=== PATIENT | female | born 1945 | race Caucasian/White ===

== ENCOUNTER 2021-03-31 13:09 | Outpatient (CLI) | payer MEDICARE | END 2021-03-31 13:10 | disposition home or self-care (01) | LOC: CSHULT 13:09 | PROVIDERS: ATTEND Family Medicine | DX: R06.09 Other forms of dyspnea (principal); I34.0 Nonrheumatic mitral (valve) insufficiency; I07.1 Rheumatic tricuspid insufficiency | CPT/HCPCS: 93306 ==

== ENCOUNTER 2022-02-28 12:15 | Outpatient (CLI) | payer OTHER ==
[~2022-02-28 12:15] MED LIST: Iopamidol 300 61% 100 ML VIAL FS ONE
== END 2022-02-28 12:16 | disposition home or self-care (01) ==
LOC: CSHCT 12:15
PROVIDERS: ATTEND Otolaryngology Plastic Surgery within the Head & Neck
DX: C06.9 Malignant neoplasm of mouth, unspecified (principal); I65.23 Occlusion and stenosis of bilateral carotid arteries
CPT/HCPCS: 70492; 82565

== ENCOUNTER 2022-04-12 12:58 | Inpatient (IN) | payer MEDICARE ==
[2022-04-12] MEDS ORDERED: Ondansetron PF 4 MG/2 ML Vial ONE (13:31)
[2022-04-12 13:39] LABS: Bilirubin Neg (Negative); Blood, Urine 50 (Negative); Clarity Cloudy (Clear); Glucose, Urine (Dipstick) Normal (Negative); Ketone, Urine Negative (Negative); Leukocyte 500 (Negative); Nitrite Positive (Negative); Protein, Urine (Dipstick) 30 mg/dl (Neg-Trace); Urobilinogen Normal mg/dL (Less than 2)
[2022-04-12 13:48] LABS: Bacteria/HPF 2+ HPF (None Seen); WBC/HPF Greater than 50 HPF (0-3)
[2022-04-12 14:11] LABS: #Eosinphils 0.2 10x3/uL (0.0-0.5); #Neutrophils 11.3 10x3/uL (1.5-8.4); %Basophils 0.2 % (0.0-2.0); %Eosinophils 1.4 % (0.0-6.0); %Lymphocytes 9.8 % (18.0-47.0); %Monocytes 7.4 % (0.0-10.0); %Neutrophils 80.8 % (40.0-75.0); Hemoglobin 11.7 g/dL (12.0-15.5); Mean Corpuscular HGB CONC 36.2 g/dL (32.0-36.0); Mean Platelet Volume 10.6 fl (7.4-10.4); Platelet Count 354 10x3/uL (150-450); RBC Distribution Width 11.9 % (11.5-14.5); Red Blood Cell (RBC) Count 3.55 10x6/uL (3.90-5.03)
[2022-04-12 14:25] LABS: ALT (SGPT) 21 U/L (8-55); AST (SGOT) 25 U/L (5-34); Albumin 3.6 g/dL (3.4-4.8); Alkaline Phosphatase 122 U/L (40-110); Anion Gap 12 mmol/L (10-20); BUN (Urea Nitrogen) 17 mg/dL (9.8-20.1); Bilirubin, Total 0.6 mg/dL (0.2-1.2); Calc. Creatinine Clearance 0 mL/min (70-130); Carbon Dioxide 21 mmol/L (23-31); Chloride 89 mmol/L (98-107); Estimated GFR 64; Globulin 2.9 g/dL (2.4-3.5); Glucose 72 mg/dL (83-110); Magnesium 1.5 mg/dL (1.6-2.6); Potassium 4.5 mmol/L (3.5-5.1); Protein, Total 6.5 g/dL (5.8-8.1)
[2022-04-12 14:31] LABS: Sodium 117 mmol/L (136-145)
[2022-04-12] MEDS ORDERED: cefTRIAXone (ROCEPHIN) 1 GM VIAL ONE (14:32)
[2022-04-12] MEDS ORDERED: Dextrose 50% Abboject 50 ML SYRINGE SLOW IVP PRN (16:48)
[2022-04-12] MEDS ORDERED: Dextrose 5% in Water 1,000 ML IV PRN (16:48)
[2022-04-12] MEDS ORDERED: HumaLOG 300 UNITS/3 ML VIAL SC PRN (16:48)
[2022-04-12] MEDS ORDERED: Ondansetron PF 4 MG/2 ML Vial IVP PRN (16:51)
[2022-04-12] MEDS ORDERED: Senokot S 8.6-50 MG TAB PO PRN (16:51)
[2022-04-12] MEDS ORDERED: Ondansetron ODT 4 MG TAB PO PRN (16:51)
[2022-04-12] MEDS ORDERED: Magnesium 2 GM/50 ML(in water) 2 GM in Premix Bag 1 BAG IVPB SCH (17:15)
[2022-04-12] MEDS ORDERED: Ipratropium/Albuterol 3 ML NEB NEB PRN (17:23)
[2022-04-12] MEDS: Sodium Chloride 0.9% 1,000 ML IV SCH ×2 (18:15→18:31)
[2022-04-12] MEDS: HumaLOG 300 UNITS/3 ML VIAL SC PRN (18:16)
[2022-04-12 18:41] LABS: Troponin I Less than 0.010 ng/mL (< 0.028)
[2022-04-12 20:25] LABS: SARS-CoV-2 NAA Rapid Test Not Detected (NotDetected)
[2022-04-12 20:50] LABS: Anion Gap 12 mmol/L (10-20); BUN (Urea Nitrogen) 14 mg/dL (9.8-20.1); Calc. Creatinine Clearance 70 mL/min (70-130); Calcium 8.9 mg/dL (7.8-10.44); Carbon Dioxide 19 mmol/L (23-31); Chloride 89 mmol/L (98-107); Estimated GFR 65; Glucose 187 mg/dL (83-110); Potassium 4.3 mmol/L (3.5-5.1)
[2022-04-12 20:53] LABS: Sodium 116 mmol/L (136-145)
[2022-04-12] MEDS: Famotidine 20 MG TAB PO SCH (21:01)
[2022-04-12] MEDS: Atorvastatin Calcium 10 MG TAB PO SCH (21:01)
[2022-04-12] MEDS: Metoprolol Tartrate 50 MG TAB PO SCH (21:05)
[2022-04-12] MEDS ORDERED: TOLVAPTAN 15 MG PO SCH (21:15)
[2022-04-12] MEDS ORDERED: TOLVAPTAN PO SCH (21:15)
[2022-04-12] MEDS: Acetaminophen 325 MG TAB PO PRN (22:43)
[2022-04-13 05:05] LABS: #Basophils 0.1 10x3/uL (0.0-0.2); #Eosinphils 0.3 10x3/uL (0.0-0.5); #Monocytes 1.1 10x3/uL (0.0-1.1); #Neutrophils 10.9 10x3/uL (1.5-8.4); %Basophils 0.5 % (0.0-2.0); %Eosinophils 2.3 % (0.0-6.0); %Lymphocytes 9.2 % (18.0-47.0); %Monocytes 8.2 % (0.0-10.0); %Neutrophils 79.4 % (40.0-75.0); Hemoglobin 12.1 g/dL (12.0-15.5); Mean Corpuscular HGB CONC 34.6 g/dL (32.0-36.0); Mean Corpuscular Hemoglobin 31.8 pg (27.0-33.0); Mean Corpuscular Volume 91.9 fl (81.6-98.3); Mean Platelet Volume 10.6 fl (7.4-10.4); Platelet Count 350 10x3/uL (150-450); RBC Distribution Width 11.9 % (11.5-14.5); Red Blood Cell (RBC) Count 3.81 10x6/uL (3.90-5.03); White Blood Cell (WBC) Count 13.7 10x3/uL (3.5-10.5)
[2022-04-13 05:32] LABS: Anion Gap 17 mmol/L (10-20); BUN (Urea Nitrogen) 15 mg/dL (9.8-20.1); Calc. Creatinine Clearance 70 mL/min (70-130); Calcium 9.3 mg/dL (7.8-10.44); Carbon Dioxide 16 mmol/L (23-31); Chloride 94 mmol/L (98-107); Estimated GFR 65; Glucose 115 mg/dL (83-110); Magnesium 1.9 mg/dL (1.6-2.6); Sodium 122 mmol/L (136-145)
[2022-04-13] MEDS ORDERED: Levothyroxine Sodium 88 MCG TAB PO SCH (06:00)
[2022-04-13] MEDS: Metoprolol Tartrate 50 MG TAB PO SCH ×2 (10:35→20:17)
[2022-04-13] MEDS: Fluticasone Propionate Nasal Spray 16 gm Bottle NASAL SCH (10:35)
[2022-04-13] MEDS: Famotidine 20 MG TAB PO SCH ×2 (10:35→20:17)
[2022-04-13] MEDS: HumaLOG 300 UNITS/3 ML VIAL SC PRN ×2 (13:00→15:46)
[2022-04-13] MEDS: cefTRIAXone\\ROCEPHIN 1 GM in Sodium Chloride 0.9% 100 ML IVPB SCH (15:34)
[2022-04-13] MEDS: HumaLOG 300 UNITS/3 ML VIAL SC SCH (17:00)
[2022-04-13] MEDS: Acetaminophen 325 MG TAB PO PRN (19:57)
[2022-04-13] MEDS: Atorvastatin Calcium 10 MG TAB PO SCH (20:17)
[2022-04-13] MEDS: Lantus 1000 UNITS/10 ML VIAL SC SCH (20:17)
[2022-04-13] MEDS ORDERED: Lantus 1000 UNITS/10 ML VIAL SC SCH (23:59)
[2022-04-13] MEDS ORDERED: HumaLOG 300 UNITS/3 ML VIAL SC SCH (23:59)
[2022-04-14 05:31] LABS: Anion Gap 16 mmol/L (10-20); BUN (Urea Nitrogen) 19 mg/dL (9.8-20.1); Calc. Creatinine Clearance 56 mL/min (70-130); Calcium 9.6 mg/dL (7.8-10.44); Carbon Dioxide 18 mmol/L (23-31); Chloride 97 mmol/L (98-107); Estimated GFR 49; Glucose 276 mg/dL (83-110); Magnesium 2.1 mg/dL (1.6-2.6); Potassium 5.5 mmol/L (3.5-5.1); Sodium 125 mmol/L (136-145)
[2022-04-14 05:40] LABS: #Basophils 0.1 10x3/uL (0.0-0.2); #Eosinphils 0.4 10x3/uL (0.0-0.5); #Monocytes 1.1 10x3/uL (0.0-1.1); #Neutrophils 8.1 10x3/uL (1.5-8.4); %Basophils 0.7 % (0.0-2.0); %Eosinophils 3.7 % (0.0-6.0); %Monocytes 9.9 % (0.0-10.0); %Neutrophils 72.2 % (40.0-75.0); Hemoglobin 12.1 g/dL (12.0-15.5); Mean Corpuscular HGB CONC 34.6 g/dL (32.0-36.0); Mean Corpuscular Hemoglobin 32.4 pg (27.0-33.0); Mean Corpuscular Volume 93.6 fl (81.6-98.3); Mean Platelet Volume 10.6 fl (7.4-10.4); Platelet Count 351 10x3/uL (150-450); RBC Distribution Width 12.2 % (11.5-14.5); Red Blood Cell (RBC) Count 3.74 10x6/uL (3.90-5.03); White Blood Cell (WBC) Count 11.2 10x3/uL (3.5-10.5)
[2022-04-14] MEDS: Levothyroxine Sodium 88 MCG TAB PO SCH (05:44)
[2022-04-14] MEDS: Sodium Bicarbonate Tab 325 MG TAB PO SCH ×3 (08:57→21:50)
[2022-04-14] MEDS: Metoprolol Tartrate 50 MG TAB PO SCH ×2 (08:58→21:50)
[2022-04-14] MEDS: HumaLOG 300 UNITS/3 ML VIAL SC SCH ×3 (08:58→17:36)
[2022-04-14] MEDS: Famotidine 20 MG TAB PO SCH (08:58)
[2022-04-14] MEDS: Fluticasone Propionate Nasal Spray 16 gm Bottle NASAL SCH (09:00)
[2022-04-14] MEDS ORDERED: Atorvastatin Calcium 10 MG TAB PO SCH (09:00)
[2022-04-14] MEDS ORDERED: LOKELMA 10 GM PACKET PO SCH (09:00)
[2022-04-14] MEDS ORDERED: Losartan Potassium 50 MG TAB PO SCH (09:00)
[2022-04-14] MEDS: Acetaminophen 325 MG TAB PO PRN (14:08)
[2022-04-14] MEDS: cefTRIAXone\\ROCEPHIN 1 GM in Sodium Chloride 0.9% 100 ML IVPB SCH (14:42)
[2022-04-14] MEDS: Lantus 1000 UNITS/10 ML VIAL SC SCH (21:50)
[2022-04-14] MEDS: Atorvastatin Calcium 10 MG TAB PO SCH (21:50)
[2022-04-15] MEDS: Levothyroxine Sodium 88 MCG TAB PO SCH (06:05)
[2022-04-15 06:28] LABS: #Basophils 0.1 10x3/uL (0.0-0.2); #Eosinphils 0.4 10x3/uL (0.0-0.5); #Neutrophils 8.5 10x3/uL (1.5-8.4); %Basophils 0.6 % (0.0-2.0); %Eosinophils 3.5 % (0.0-6.0); %Lymphocytes 12.6 % (18.0-47.0); %Monocytes 8.4 % (0.0-10.0); %Neutrophils 74.5 % (40.0-75.0); Hemoglobin 11.9 g/dL (12.0-15.5); Mean Corpuscular HGB CONC 34.9 g/dL (32.0-36.0); Mean Corpuscular Hemoglobin 32.7 pg (27.0-33.0); Mean Corpuscular Volume 93.7 fl (81.6-98.3); Platelet Count 363 10x3/uL (150-450); RBC Distribution Width 12.2 % (11.5-14.5); Red Blood Cell (RBC) Count 3.64 10x6/uL (3.90-5.03); White Blood Cell (WBC) Count 11.4 10x3/uL (3.5-10.5)
[2022-04-15 06:30] LABS: Magnesium 1.7 mg/dL (1.6-2.6)
[2022-04-15] MEDS: Acetaminophen 325 MG TAB PO PRN ×2 (07:37→21:26)
[2022-04-15] MEDS: Sodium Bicarbonate Tab 325 MG TAB PO SCH ×3 (08:34→21:26)
[2022-04-15] MEDS: HumaLOG 300 UNITS/3 ML VIAL SC SCH ×3 (08:34→18:25)
[2022-04-15] MEDS: Metoprolol Tartrate 50 MG TAB PO SCH ×2 (08:35→21:26)
[2022-04-15] MEDS: Famotidine 20 MG TAB PO SCH (08:35)
[2022-04-15] MEDS: Fluticasone Propionate Nasal Spray 16 gm Bottle NASAL SCH (08:36)
[2022-04-15 09:30] LABS: Anion Gap 18 mmol/L (10-20); BUN (Urea Nitrogen) 18 mg/dL (9.8-20.1); Calc. Creatinine Clearance 56 mL/min (70-130); Carbon Dioxide 20 mmol/L (23-31); Chloride 96 mmol/L (98-107); Estimated GFR 47; Glucose 255 mg/dL (83-110); Potassium 5.2 mmol/L (3.5-5.1); Sodium 129 mmol/L (136-145)
[2022-04-15] MEDS: cefTRIAXone\\ROCEPHIN 1 GM in Sodium Chloride 0.9% 100 ML IVPB SCH (15:42)
[2022-04-15] MEDS: Atorvastatin Calcium 10 MG TAB PO SCH (21:26)
[2022-04-15] MEDS: Lantus 1000 UNITS/10 ML VIAL SC SCH (21:27)
[2022-04-16 04:15] LABS: #Basophils 0.1 10x3/uL (0.0-0.2); #Eosinphils 0.5 10x3/uL (0.0-0.5); #Neutrophils 7.5 10x3/uL (1.5-8.4); %Basophils 0.6 % (0.0-2.0); %Eosinophils 4.5 % (0.0-6.0); %Lymphocytes 18.5 % (18.0-47.0); %Monocytes 8.7 % (0.0-10.0); %Neutrophils 67.3 % (40.0-75.0); Mean Corpuscular HGB CONC 33.9 g/dL (32.0-36.0); Mean Corpuscular Hemoglobin 32.6 pg (27.0-33.0); Mean Corpuscular Volume 96.2 fl (81.6-98.3); Mean Platelet Volume 10.4 fl (7.4-10.4); Platelet Count 363 10x3/uL (150-450); RBC Distribution Width 12.4 % (11.5-14.5); Red Blood Cell (RBC) Count 3.68 10x6/uL (3.90-5.03); White Blood Cell (WBC) Count 11.1 10x3/uL (3.5-10.5)
[2022-04-16 04:24] LABS: Anion Gap 14 mmol/L (10-20); BUN (Urea Nitrogen) 16 mg/dL (9.8-20.1); Calc. Creatinine Clearance 78 mL/min (70-130); Calcium 9.2 mg/dL (7.8-10.44); Carbon Dioxide 22 mmol/L (23-31); Chloride 101 mmol/L (98-107); Estimated GFR 70; Glucose 84 mg/dL (83-110); Sodium 132 mmol/L (136-145)
[2022-04-16 04:29] LABS: Potassium 4.9 mmol/L (3.5-5.1)
[2022-04-16] MEDS: Levothyroxine Sodium 88 MCG TAB PO SCH (05:56)
[2022-04-16] MEDS: Acetaminophen 325 MG TAB PO PRN ×2 (08:06→18:30)
[2022-04-16] MEDS: Sodium Bicarbonate Tab 325 MG TAB PO SCH ×3 (08:09→21:56)
[2022-04-16] MEDS: Famotidine 20 MG TAB PO SCH ×2 (08:10→21:56)
[2022-04-16] MEDS: Fluticasone Propionate Nasal Spray 16 gm Bottle NASAL SCH (08:10)
[2022-04-16] MEDS: Metoprolol Tartrate 50 MG TAB PO SCH ×2 (08:14→21:56)
[2022-04-16] MEDS: HumaLOG 300 UNITS/3 ML VIAL SC SCH ×3 (08:45→17:33)
[2022-04-16] MEDS: cefTRIAXone\\ROCEPHIN 1 GM in Sodium Chloride 0.9% 100 ML IVPB SCH (14:59)
[2022-04-16] MEDS: Atorvastatin Calcium 10 MG TAB PO SCH (21:56)
[2022-04-17 04:47] LABS: #Basophils 0.1 10x3/uL (0.0-0.2); #Eosinphils 0.5 10x3/uL (0.0-0.5); #Neutrophils 7.4 10x3/uL (1.5-8.4); %Basophils 0.7 % (0.0-2.0); %Eosinophils 4.4 % (0.0-6.0); %Lymphocytes 16.5 % (18.0-47.0); %Monocytes 9.3 % (0.0-10.0); %Neutrophils 68.5 % (40.0-75.0); Hemoglobin 12.3 g/dL (12.0-15.5); Mean Corpuscular HGB CONC 34.1 g/dL (32.0-36.0); Mean Corpuscular Hemoglobin 32.9 pg (27.0-33.0); Mean Corpuscular Volume 96.5 fl (81.6-98.3); Mean Platelet Volume 10.6 fl (7.4-10.4); Platelet Count 336 10x3/uL (150-450); RBC Distribution Width 12.3 % (11.5-14.5); Red Blood Cell (RBC) Count 3.74 10x6/uL (3.90-5.03); White Blood Cell (WBC) Count 10.7 10x3/uL (3.5-10.5)
[2022-04-17 05:02] VITALS: BP 145/74; TEMP 97.8
[2022-04-17] MEDS: Levothyroxine Sodium 88 MCG TAB PO SCH (05:02)
[2022-04-17] MEDS: Lantus 1000 UNITS/10 ML VIAL SC SCH (05:02)
[2022-04-17 05:12] LABS: Anion Gap 15 mmol/L (10-20); BUN (Urea Nitrogen) 16 mg/dL (9.8-20.1); Calc. Creatinine Clearance 85 mL/min (70-130); Calcium 9.2 mg/dL (7.8-10.44); Carbon Dioxide 21 mmol/L (23-31); Chloride 102 mmol/L (98-107); Estimated GFR 76; Glucose 84 mg/dL (83-110); Potassium 4.2 mmol/L (3.5-5.1); Sodium 134 mmol/L (136-145)
[2022-04-17 06:46] VITALS: BMI 34.9
[2022-04-17] MEDS: HumaLOG 300 UNITS/3 ML VIAL SC SCH (09:04)
[2022-04-17] MEDS: Famotidine 20 MG TAB PO SCH (09:07)
[2022-04-17] MEDS: Metoprolol Tartrate 50 MG TAB PO SCH (09:07)
[2022-04-17] MEDS: Sodium Bicarbonate Tab 325 MG TAB PO SCH (09:07)
[2022-04-17] MEDS: Fluticasone Propionate Nasal Spray 16 gm Bottle NASAL SCH (09:08)
[2022-04-17] MEDS ORDERED: Mineral Oil ENEMA PR SCH (10:00)
== END 2022-04-17 15:57 | DRG 644 ==
LOC: CSHERS 12:58 → CSHTELE 17:04 → OBSVTOIN 04-13 16:27
PROVIDERS: ADMIT Internal Medicine; ATTEND Internal Medicine
DX: E22.2 Syndrome of inappropriate secretion of antidiuretic hormone (principal); E87.20 Acidosis, unspecified; N39.0 Urinary tract infection, site not specified; R18.8 Other ascites; I10 Essential (primary) hypertension; E78.5 Hyperlipidemia, unspecified; E03.9 Hypothyroidism, unspecified; I48.91 Unspecified atrial fibrillation; E86.0 Dehydration; E83.42 Hypomagnesemia; R13.10 Dysphagia, unspecified; D64.9 Anemia, unspecified; Z20.822 Contact with and (suspected) exposure to COVID-19; E87.8 Other disorders of electrolyte and fluid balance, not elsewhere classified; E78.00 Pure hypercholesterolemia, unspecified; E87.5 Hyperkalemia; D63.8 Anemia in other chronic diseases classified elsewhere; K59.00 Constipation, unspecified; E10.649 Type 1 diabetes mellitus with hypoglycemia without coma; E10.65 Type 1 diabetes mellitus with hyperglycemia; Z88.8 Allergy status to other drugs, medicaments and biological substances; Z79.4 Long term (current) use of insulin; Z79.899 Other long term (current) drug therapy; Z95.0 Presence of cardiac pacemaker; Z98.890 Other specified postprocedural states; Z98.42 Cataract extraction status, left eye; Z98.41 Cataract extraction status, right eye; Z85.810 Personal history of malignant neoplasm of tongue
CPT/HCPCS: 36415; 36416; 71045; 80048; 80053; 81003; 81015; 82533; 83735; 83930; 83935; 84300; 84443; 84484; 85025; 87040; 93005; 93010; 94760; 96365; 96375; 96376; G0378; J0696; J1815; J2405; J3475; J3490; J7050; J7999

== ENCOUNTER 2022-05-15 04:07 | Inpatient (IN) | payer MEDICARE ==
[2022-05-15] MEDS ORDERED: Cefepime 2 GM VIAL ONE ×2 (04:31→12:07)
[2022-05-15 04:52] LABS: Hemoglobin 11.7 g/dL (12.0-15.5); MDiff Complete? YES; Mean Corpuscular HGB CONC 33.2 g/dL (32.0-36.0); Mean Corpuscular Hemoglobin 32.7 pg (27.0-33.0); Mean Corpuscular Volume 98.3 fl (81.6-98.3); Mean Platelet Volume 10.5 fl (7.4-10.4); Platelet Count 289 10x3/uL (150-450); Red Blood Cell (RBC) Count 3.58 10x6/uL (3.90-5.03); White Blood Cell (WBC) Count 21.4 10x3/uL (3.5-10.5)
[2022-05-15 05:15] LABS: Band 9 % (5-11); Lymphocytes 3 % (21-51); Monocytes 2 % (0-10); Neutrophil 86 % (42-75); Platelet Morphology Comment Appears Adequate
[2022-05-15 05:19] LABS: ALT (SGPT) 25 U/L (8-55); AST (SGOT) 33 U/L (5-34); Albumin 3.3 g/dL (3.4-4.8); Alkaline Phosphatase 127 U/L (40-110); Anion Gap 22 mmol/L (10-20); BUN (Urea Nitrogen) 35 mg/dL (9.8-20.1); Bilirubin, Total 0.8 mg/dL (0.2-1.2); Calc. Creatinine Clearance 0 mL/min (70-130); Calcium 8.7 mg/dL (7.8-10.44); Carbon Dioxide 22 mmol/L (23-31); Chloride 98 mmol/L (98-107); Estimated GFR 39; Globulin 2.8 g/dL (2.4-3.5); Glucose 229 mg/dL (83-110); Magnesium 1.5 mg/dL (1.6-2.6); Protein, Total 6.1 g/dL (5.8-8.1); Sodium 137 mmol/L (136-145)
[2022-05-15 05:32] LABS: SARS-CoV-2 NAA Rapid Test Not Detected (NotDetected)
[2022-05-15] MEDS ORDERED: Vancomycin 1 GM VIAL ONE (05:41)
[2022-05-15 05:47] LABS: Bilirubin Neg (Negative); Blood, Urine 25 (Negative); Clarity Slightly Cloudy (Clear); Glucose, Urine (Dipstick) 50 mg/dL (Negative); Ketone, Urine 50 mg/dL (Negative); Leukocyte 500 (Negative); Nitrite Negative (Negative); Protein, Urine (Dipstick) 100 mg/dl (Neg-Trace); Specific Gravity, Urine 1.015 (1.005-1.030)
[2022-05-15 05:50] LABS: CKMB 0.4 ng/mL (0-6.6)
[2022-05-15 05:54] LABS: Bacteria/HPF 1+ HPF (None Seen); WBC/HPF 21-50 HPF (0-3)
[2022-05-15] MEDS ORDERED: Ondansetron ODT 4 MG TAB PO PRN (10:49)
[2022-05-15] MEDS ORDERED: Ondansetron PF 4 MG/2 ML Vial IVP PRN (10:49)
[2022-05-15] MEDS ORDERED: Acetaminophen 325 MG TAB PO PRN (10:49)
[2022-05-15] MEDS ORDERED: Bisacodyl 10 MG SUPP PR PRN (10:56)
[2022-05-15] MEDS ORDERED: Sodium Chloride 0.9% 1,000 ML IV SCH (11:00)
[2022-05-15] MEDS ORDERED: Dextrose 5% in Water 1,000 ML IV PRN (11:01)
[2022-05-15] MEDS ORDERED: Dextrose 50% Abboject 50 ML SYRINGE SLOW IVP PRN (11:01)
[2022-05-15] MEDS ORDERED: Morphine 2 MG/ML VIAL SLOW IVP PRN (11:04)
[2022-05-15] MEDS ORDERED: Magnesium 2 GM/50 ML(in water) 2 GM in Premix Bag 1 BAG IVPB SCH (11:15)
[2022-05-15] MEDS ORDERED: Metoprolol Tartrate 50 MG TAB ONE (12:06)
[2022-05-15] MEDS ORDERED: Acetaminophen 325 MG TAB ONE (12:06)
[2022-05-15] MEDS ORDERED: Magnesium 2 GM/50 ML BAG (IN WATER) ONE (12:06)
[2022-05-15 12:14] LABS: Hemoglobin 10.9 g/dL (12.0-15.5); Mean Corpuscular HGB CONC 32.6 g/dL (32.0-36.0); Mean Corpuscular Hemoglobin 32.7 pg (27.0-33.0); Mean Corpuscular Volume 100.3 fl (81.6-98.3); Mean Platelet Volume 10.3 fl (7.4-10.4); Platelet Count 235 10x3/uL (150-450); RBC Distribution Width 13.1 % (11.5-14.5); Red Blood Cell (RBC) Count 3.33 10x6/uL (3.90-5.03); White Blood Cell (WBC) Count 21.1 10x3/uL (3.5-10.5)
[2022-05-15 12:16] LABS: MDiff Complete? YES
[2022-05-15 12:42] LABS: CKMB 0.9 ng/mL (0-6.6)
[2022-05-15] MEDS ORDERED: Acetaminophen 650 MG Suppository ONE (12:46)
[2022-05-15 12:51] LABS: Band 12 % (5-11); Lymphocytes 5 % (21-51); Monocytes 4 % (0-10); Neutrophil 79 % (42-75)
[2022-05-15 12:53] LABS: Platelet Morphology Comment Appears Adequate
[2022-05-15 12:54] LABS: RBC Morphology Normal
[2022-05-15] MEDS: Acetaminophen 650 MG Suppository PR PRN ×2 (13:00→21:03)
[2022-05-15] MEDS ORDERED: Acetaminophen 650 MG Suppository PR SCH (13:00)
[2022-05-15] MEDS: Sodium Chloride 0.9% 1,000 ML IV SCH ×2 (13:47→21:07)
[2022-05-15 14:44] VITALS: BMI 33.3
[2022-05-15] MEDS: Cefepime 1 GM in Sodium Chloride 0.9% 100 ML IVPB SCH (16:30)
[2022-05-15 17:10] LABS: CKMB 1.1 ng/mL (0-6.6)
[2022-05-15] MEDS ORDERED: Vancomycin HCl 1 GM in Sodium Chloride 0.9% 250 ML 300 ML IVPB SCH (21:00)
[2022-05-15] MEDS: Metoprolol Tartrate 50 MG TAB PO SCH (21:03)
[2022-05-16 03:49] LABS: Hemoglobin 9.8 g/dL (12.0-15.5); Mean Corpuscular HGB CONC 33.4 g/dL (32.0-36.0); Mean Corpuscular Hemoglobin 32.8 pg (27.0-33.0); Mean Platelet Volume 10.5 fl (7.4-10.4); RBC Distribution Width 13.2 % (11.5-14.5); Red Blood Cell (RBC) Count 2.99 10x6/uL (3.90-5.03); White Blood Cell (WBC) Count 17.5 10x3/uL (3.5-10.5)
[2022-05-16 03:57] LABS: Anion Gap 16 mmol/L (10-20); BUN (Urea Nitrogen) 41 mg/dL (9.8-20.1); Calc. Creatinine Clearance 69 mL/min (70-130); Calcium 8.1 mg/dL (7.8-10.44); Carbon Dioxide 19 mmol/L (23-31); Chloride 107 mmol/L (98-107); Estimated GFR 59; Glucose 183 mg/dL (83-110); Magnesium 1.9 mg/dL (1.6-2.6); Potassium 5.3 mmol/L (3.5-5.1); Sodium 137 mmol/L (136-145)
[2022-05-16 04:16] LABS: Platelet Count 195 10x3/uL (130-400)
[2022-05-16 04:17] LABS: MDiff Complete? YES
[2022-05-16 04:18] LABS: Band 5 % (5-11); Eosinophils 2 % (0-10); Lymphocytes 8 % (21-51); Monocytes 1 % (0-10); Neutrophil 84 % (42-75)
[2022-05-16 04:19] LABS: Platelet Morphology Comment Appears Adequate
[2022-05-16] MEDS: Cefepime 1 GM in Sodium Chloride 0.9% 100 ML IVPB SCH (05:09)
[2022-05-16] MEDS: Levothyroxine Sodium 88 MCG TAB PO SCH (05:10)
[2022-05-16] MEDS: Sodium Chloride 0.9% 1,000 ML IV SCH (05:13)
[2022-05-16] MEDS: HYDROcodone/Acetaminophen 5/325 mg Tablet PO PRN ×2 (05:34→12:35)
[2022-05-16] MEDS ORDERED: Vancomycin HCl 1 GM in Sodium Chloride 0.9% 250 ML 250 ML IVPB SCH (06:00)
[2022-05-16] MEDS: Citalopram 20 MG TAB PO SCH (08:13)
[2022-05-16] MEDS: Metoprolol Tartrate 50 MG TAB PO SCH ×2 (08:14→21:53)
[2022-05-16] MEDS: Atorvastatin Calcium 10 MG TAB PO SCH (08:14)
[2022-05-16] MEDS: HumaLOG 300 UNITS/3 ML VIAL SC PRN ×2 (08:56→12:37)
[2022-05-16] MEDS: Mupirocin 2% Ointment 22 GM Tube TOP SCH ×2 (08:57→21:53)
[2022-05-16 16:31] LABS: Potassium 4.8 mmol/L (3.5-5.1)
[2022-05-16] MEDS ORDERED: HumaLOG 300 UNITS/3 ML VIAL SC PRN (17:30)
[2022-05-16] MEDS: Vancomycin HCl 750 MG in Sodium Chloride 0.9% 250 ML 250 ML IVPB SCH (17:39)
[2022-05-16] MEDS ORDERED: Lactated Ringer's 1,000 ML IV SCH (18:15)
[2022-05-16] MEDS ORDERED: Lantus 1000 UNITS/10 ML VIAL SC SCH (21:00)
[2022-05-17] MEDS: Vancomycin HCl 750 MG in Sodium Chloride 0.9% 250 ML 250 ML IVPB SCH ×2 (06:04→17:38)
[2022-05-17] MEDS: Levothyroxine Sodium 88 MCG TAB PO SCH (06:06)
[2022-05-17 08:46] LABS: Hemoglobin 10.2 g/dL (12.0-15.5); Mean Corpuscular HGB CONC 31.8 g/dL (32.0-36.0); Mean Corpuscular Volume 100.6 fl (81.6-98.3); Mean Platelet Volume 11.7 fl (7.4-10.4); Platelet Count 211 10x3/uL (150-450); RBC Distribution Width 13.8 % (11.5-14.5); Red Blood Cell (RBC) Count 3.19 10x6/uL (3.90-5.03); White Blood Cell (WBC) Count 19.1 10x3/uL (3.5-10.5)
[2022-05-17 08:46] LABS: Anion Gap 18 mmol/L (10-20); BUN (Urea Nitrogen) 46 mg/dL (9.8-20.1); Calc. Creatinine Clearance 84 mL/min (70-130); Calcium 8.2 mg/dL (7.8-10.44); Carbon Dioxide 16 mmol/L (23-31); Chloride 106 mmol/L (98-107); Estimated GFR 76; Glucose 285 mg/dL (83-110); Magnesium 1.8 mg/dL (1.6-2.6); Potassium 4.9 mmol/L (3.5-5.1); Sodium 135 mmol/L (136-145)
[2022-05-17] MEDS ORDERED: Lantus 1000 UNITS/10 ML VIAL SC SCH ×2 (09:00→21:00)
[2022-05-17] MEDS: Citalopram 20 MG TAB PO SCH (09:12)
[2022-05-17] MEDS: Atorvastatin Calcium 10 MG TAB PO SCH (09:12)
[2022-05-17] MEDS: Metoprolol Tartrate 50 MG TAB PO SCH ×2 (09:14→21:09)
[2022-05-17] MEDS: Mupirocin 2% Ointment 22 GM Tube TOP SCH ×2 (09:14→21:09)
[2022-05-17 09:19] LABS: MDiff Complete? YES
[2022-05-17 09:22] LABS: Band 14 % (5-11); Lymphocytes 3 % (21-51); Monocytes 1 % (0-10); Neutrophil 82 % (42-75)
[2022-05-17 09:23] LABS: Platelet Morphology Comment Appears Adequate
[2022-05-17 09:24] LABS: Burr Cells SLIGHT = 2-5 cells (100X) (0-1/hpf)
[2022-05-17] MEDS ORDERED: Dextrose 10% in Water 250 ML IVPB SCH (11:15)
[2022-05-17] MEDS: HumaLOG 300 UNITS/3 ML VIAL SC PRN (17:38)
[2022-05-17 18:32] LABS: Vancomycin, Trough 14.2 ug/mL
[2022-05-18] MEDS: Vancomycin HCl 750 MG in Sodium Chloride 0.9% 250 ML 250 ML IVPB SCH ×2 (06:17→17:43)
[2022-05-18] MEDS: Levothyroxine Sodium 88 MCG TAB PO SCH (06:20)
[2022-05-18] MEDS: HumaLOG 300 UNITS/3 ML VIAL SC SCH ×3 (08:53→17:43)
[2022-05-18] MEDS: Atorvastatin Calcium 10 MG TAB PO SCH (08:55)
[2022-05-18] MEDS: Citalopram 20 MG TAB PO SCH (08:55)
[2022-05-18] MEDS: Metoprolol Tartrate 50 MG TAB PO SCH ×2 (08:56→21:14)
[2022-05-18] MEDS: Mupirocin 2% Ointment 22 GM Tube TOP SCH ×2 (08:56→21:20)
[2022-05-18] MEDS ORDERED: Lantus 1000 UNITS/10 ML VIAL SC SCH ×2 (12:00→21:00)
[2022-05-18] MEDS ORDERED: HumaLOG 300 UNITS/3 ML VIAL SC PRN (13:15)
[2022-05-18] MEDS: HumaLOG 300 UNITS/3 ML VIAL SC PRN (21:17)
[2022-05-19 05:14] LABS: Hemoglobin 11.3 g/dL (12.0-15.5); Mean Corpuscular HGB CONC 34.5 g/dL (32.0-36.0); Mean Corpuscular Hemoglobin 32.8 pg (27.0-33.0); Mean Corpuscular Volume 95.3 fl (81.6-98.3); Mean Platelet Volume 11.6 fl (7.4-10.4); Platelet Count 220 10x3/uL (150-450); RBC Distribution Width 13.7 % (11.5-14.5); Red Blood Cell (RBC) Count 3.44 10x6/uL (3.90-5.03); White Blood Cell (WBC) Count 22.1 10x3/uL (3.5-10.5)
[2022-05-19 05:15] LABS: MDiff Complete? YES
[2022-05-19 05:26] LABS: Anion Gap 18 mmol/L (10-20); BUN (Urea Nitrogen) 46 mg/dL (9.8-20.1); Calc. Creatinine Clearance 89 mL/min (70-130); Calcium 8.4 mg/dL (7.8-10.44); Carbon Dioxide 15 mmol/L (23-31); Chloride 105 mmol/L (98-107); Estimated GFR 81; Glucose 261 mg/dL (83-110); Potassium 4.7 mmol/L (3.5-5.1); Sodium 133 mmol/L (136-145)
[2022-05-19 05:36] LABS: Band 3 % (5-11); Lymphocytes 6 % (21-51); Monocytes 7 % (0-10); Neutrophil 84 % (42-75)
[2022-05-19 05:38] LABS: Platelet Morphology Comment Appears Adequate; RBC Morphology Normal
[2022-05-19] MEDS: Levothyroxine Sodium 88 MCG TAB PO SCH (05:41)
[2022-05-19] MEDS: Vancomycin HCl 750 MG in Sodium Chloride 0.9% 250 ML 250 ML IVPB SCH ×2 (05:41→18:18)
[2022-05-19] MEDS: HumaLOG 300 UNITS/3 ML VIAL SC PRN (05:43)
[2022-05-19] MEDS: Atorvastatin Calcium 10 MG TAB PO SCH (07:57)
[2022-05-19] MEDS: Citalopram 20 MG TAB PO SCH (07:57)
[2022-05-19] MEDS: Metoprolol Tartrate 50 MG TAB PO SCH ×2 (07:58→20:45)
[2022-05-19] MEDS: HumaLOG 300 UNITS/3 ML VIAL SC SCH ×3 (08:00→20:06)
[2022-05-19] MEDS ORDERED: Lantus 1000 UNITS/10 ML VIAL SC SCH ×2 (09:00→21:00)
[2022-05-19] MEDS ORDERED: Losartan 25 MG TAB PO SCH (09:00)
[2022-05-19] MEDS: Mupirocin 2% Ointment 22 GM Tube TOP SCH (12:20)
[2022-05-19] MEDS ORDERED: Sodium Bicarbonate Tab 325 MG TAB PO SCH ×2 (17:45→21:00)
[2022-05-19] MEDS ORDERED: Dextrose 5%-Lactated Ringers 1,000 ML IV SCH (18:15)
[2022-05-19 18:21] LABS: Vancomycin, Trough 61.2 ug/mL
[2022-05-19 19:56] LABS: Vancomycin, Trough 17.9 ug/mL
[2022-05-19] MEDS ORDERED: Vancomycin HCl 750 MG in Sodium Chloride 0.9% 250 ML 250 ML IVPB SCH (21:00)
[2022-05-19 22:52] VITALS: BP 140/63; TEMP 98.3
== END 2022-05-20 00:05 | disposition short-term general hospital (02) | DRG 871 ==
LOC: CSHERS 04:07 → SUATTDRO 04:07 → CSHERHOLD 13:35 → CSHTELE 13:53
PROVIDERS: ADMIT Internal Medicine; ATTEND Family Medicine
DX: A41.02 Sepsis due to Methicillin resistant Staphylococcus aureus (principal); G93.41 Metabolic encephalopathy; I21.4 Non-ST elevation (NSTEMI) myocardial infarction; N17.9 Acute kidney failure, unspecified; E87.20 Acidosis, unspecified; I50.20 Unspecified systolic (congestive) heart failure; N30.00 Acute cystitis without hematuria; L97.429 Non-pressure chronic ulcer of left heel and midfoot with unspecified severity; L89.152 Pressure ulcer of sacral region, stage 2; Z20.822 Contact with and (suspected) exposure to COVID-19; L89.621 Pressure ulcer of left heel, stage 1; F03.90 Unspecified dementia, unspecified severity, without behavioral disturbance, psychotic disturbance, mood disturbance, and anxiety; D64.9 Anemia, unspecified; F32.A Depression, unspecified; E89.0 Postprocedural hypothyroidism; E78.00 Pure hypercholesterolemia, unspecified; E10.621 Type 1 diabetes mellitus with foot ulcer; B95.2 Enterococcus as the cause of diseases classified elsewhere; I48.91 Unspecified atrial fibrillation; I11.0 Hypertensive heart disease with heart failure; R13.12 Dysphagia, oropharyngeal phase; Z66 Do not resuscitate; Z91.048 Other nonmedicinal substance allergy status; Z79.4 Long term (current) use of insulin; Z79.890 Hormone replacement therapy; Z95.0 Presence of cardiac pacemaker; Z85.72 Personal history of non-Hodgkin lymphomas; Z79.899 Other long term (current) drug therapy; Z90.710 Acquired absence of both cervix and uterus; Z98.41 Cataract extraction status, right eye; Z98.42 Cataract extraction status, left eye; Z80.0 Family history of malignant neoplasm of digestive organs; Z80.1 Family history of malignant neoplasm of trachea, bronchus and lung; Z83.3 Family history of diabetes mellitus
CPT/HCPCS: 36415; 36416; 51702; 71045; 74176; 80048; 80053; 80202; 81003; 81015; 82553; 82565; 83605; 83735; 83880; 84145; 84484; 84520; 85025; 87040; 87070; 87077; 87081; 87086; 87149; 87186; 87205; 87324; 87449; 93005; 93306; 94760; 96361; 96365; 96366; 97139; J0692; J1650; J1815; J3370; J3475; J3490; J7050; J7120